=== PATIENT | female | born 1990 ===

== ENCOUNTER 2024-03-23 07:58 | Inpatient (IN) | payer BC ==
[2024-03-23] MEDS: Oxytocin 10 UNITS/ML VIAL ONE (08:15)
[2024-03-23] MEDS: Methylergonovine 0.2 MG/ML VIAL ONE (08:15)
[2024-03-23] MEDS: Lidocaine 1% (PF) 30 ML VIAL ONE (08:17)
[2024-03-23] MEDS: fentaNYL 50 mcg/mL 1 mL Vial ONE (08:19)
[2024-03-23] MEDS: Lidocaine 1% (PF) 30 ML VIAL SC PRN (08:40)
[2024-03-23] MEDS ORDERED: Carboprost 250 MCG/ML AMP IM PRN (09:05)
[2024-03-23] MEDS ORDERED: Methylergonovine 0.2 MG/ML VIAL IM PRN (09:05)
[2024-03-23] MEDS ORDERED: Promethazine HCl 25 MG/ML VIAL IM PRN (09:05)
[2024-03-23] MEDS ORDERED: Misoprostol 200 MCG TAB PR PRN (09:05)
[2024-03-23] MEDS ORDERED: hydrALAZINE 20 MG/ML VIAL SLOW IVP PRN ×2 (09:05→09:09)
[2024-03-23] MEDS ORDERED: fentaNYL 50 mcg/mL 1 mL Vial SLOW IVP PRN (09:05)
[2024-03-23] MEDS ORDERED: Ondansetron PF 4 MG/2 ML Vial IVP PRN (09:05)
[2024-03-23] MEDS ORDERED: Tranexamic Acid 1,000 MG/10 ML VIAL IVP PRN (09:05)
[2024-03-23] MEDS ORDERED: Acetaminophen 500 MG TAB PO PRN (09:05)
[2024-03-23] MEDS ORDERED: Ibuprofen 800 MG TAB PO PRN (09:08)
[2024-03-23] MEDS ORDERED: HYDROcodone/Acetaminophen 5/325 mg Tablet PO PRN ×2 (09:08→09:09)
[2024-03-23] MEDS ORDERED: diphenhydrAMINE 25 MG CAP PO PRN (09:09)
[2024-03-23] MEDS ORDERED: Milk Of Magnesia 30 ML UDCUP PO PRN (09:09)
[2024-03-23] MEDS ORDERED: Lanolin Ointment 7 GM TUBE TOP PRN (09:09)
[2024-03-23] MEDS ORDERED: Zolpidem Tartrate 5 MG TAB PO PRN (09:09)
[2024-03-23] MEDS ORDERED: Preparation H Ointment 28 GM TUBE PR PRN (09:09)
[2024-03-23] MEDS ORDERED: Oxytocin 30 units/NS 500 ML 500 ML IV SCH (09:15)
[2024-03-23] MEDS ORDERED: Lactated Ringer's 1,000 ML IV SCH (09:15)
[2024-03-23 09:25] VITALS: BMI 29.8
[2024-03-23 09:26] LABS: Hematocrit 41.3 % (34.9-44.5); Mean Corpuscular HGB CONC 36.3 g/dL (32.0-36.0); Mean Corpuscular Hemoglobin 33.3 pg (27.0-33.0); Mean Corpuscular Volume 91.8 fL (81.6-98.3); Mean Platelet Volume 11.1 fL (7.4-10.4); Platelet Count 256 10x3/uL (150-450); RBC Distribution Width 12.8 % (11.5-14.5); White Blood Cell (WBC) Count 17.4 10x3/uL (3.5-10.5)
[2024-03-23 09:56] LABS: Syphilis Antibody Nonreactive (Nonreactive); Syphilis Antibody Index 0.13 S/CO (<1.00 Non-Reactive)
[2024-03-23 09:57] LABS: HBsAg Index 0.17 S/CO (0-0.99); Hep B Surf Ag - L&D Non-Reactive S/CO (NonReactive)
[2024-03-23] MEDS: Boostrix 0.5 ML (Tdap) VIAL (>/=7 yrs of age) IM ONE (13:28)
[2024-03-23] MEDS: Ibuprofen 800 MG TAB PO SCH (13:51)
[2024-03-23] MEDS: Ferrous Sulfate 325 MG TAB PO SCH (15:49)
[2024-03-23 16:15] LABS: HIV (1/2) Antibody/Antigen Non-Reactive (NonReactive); HIV 1/2 INDEX 0.09 S/CO (<1.00)
[2024-03-23] MEDS: Docusate 100 MG CAP PO SCH (21:22)
[2024-03-24 05:46] LABS: Hematocrit 33.7 % (34.9-44.5); Hemoglobin 12.2 g/dL (12.0-15.5)
[2024-03-24] MEDS: Prenatal Vitamin 1 TAB PO SCH (09:43)
[2024-03-25] MEDS: Oxytocin 30 units/NS 500 ML 500 ML ONE (07:19)
[2024-03-25] MEDS: Lidocaine 1% (PF) 30 ML VIAL ONE (07:19)
[2024-03-25 08:19] VITALS: BP 121/75; TEMP 97.8
[2024-03-25] MEDS ORDERED: Benzocaine-Menthol 82.5 ML CAN TOP PRN (14:41)
== END 2024-03-25 15:45 | disposition home or self-care (01) | DRG 807 ==
LOC: CSHLD 08:02 → CSHPP 11:40
PROVIDERS: ADMIT Student in an Organized Health Care Education/Training Program; ATTEND Student in an Organized Health Care Education/Training Program
PROC: 10E0XZZ Delivery of Products of Conception, External Approach (ICD-10-PCS; principal; 2024-03-23)
PROC: 0KQM0ZZ Repair Perineum Muscle, Open Approach (ICD-10-PCS; 2024-03-23)
PROC: 0UQGXZZ Repair Vagina, External Approach (ICD-10-PCS; 2024-03-23)
DX: O62.3 Precipitate labor (principal); Z37.0 Single live birth; O70.1 Second degree perineal laceration during delivery; Z3A.40 40 weeks gestation of pregnancy
CPT/HCPCS: 36415; 85014; 85018; 85027; 86780; 86850; 86900; 86901; 87340; 87389; 88307; J2001; J2210; J2590; J3010